=== PATIENT | female | born 1930 | race African-American/Black ===

== ENCOUNTER 2018-08-18 06:45 | Inpatient (IN) | payer MEDICARE, BC ==
[~2018-08-18] VITALS: Ht 160 cm; Wt 73.0 kg
[2018-08-18] MEDS ORDERED: ACETAMINOPHEN 325MG TABLET PO STA (07:03)
[2018-08-18] MEDS ORDERED: SODIUM CHLORIDE 0.9% 1000ML BAG (SEPSIS BOLUS) IV ONE (07:15)
[2018-08-18] MEDS ORDERED: PIPERACILLIN/TAZ 3.375G PREMIX 50 ML IV ONE (07:15)
[2018-08-18] MEDS ORDERED: VANCOMYCIN 1 G PREMIX 200 ML IV ONE (07:15)
[2018-08-18 07:29] LABS: BASOPHILS % 0.3 % (0.0-2.0); HEMATOCRIT. 40.4 % (36.0-48.0); HEMOGLOBIN. 13.3 g/dL (12.0-16.0); LYMPHOCYTES % 21.3 % (20.0-50.0); MEAN CORPUSCULAR HEMOGLOBIN 27.5 pg (28.0-32.0); MEAN CORPUSCULAR VOLUME 83.5 fL (81.0-99.0); MEAN PLATELET VOLUME 7.8 fl (7.4-10.4); MONOCYTES % 8.3 % (2.0-8.0); NEUTROPHILS % 70.1 % (40.0-76.0); PLATELET 225 x1000/uL (130-400); RED BLOOD CELL COUNT 4.84 mill/uL (4.2-5.4); RED CELL DISTRIBUTION WIDTH 14.9 % (11.6-14.6)
[2018-08-18 07:34] LABS: CHLORIDE 100 mEq/L (98-107)
[2018-08-18] MEDS ORDERED: OSELTAMIVIR 75MG CAPSULE PO ONE (10:30)
[2018-08-18 14:50] VITALS: BP 131/64
[2018-08-18 16:00] VITALS: BP_SYST 130; BP_SYST 131; BP_DIAS 64; BP_DIAS 67
[2018-08-18] MEDS ORDERED: GUAIFENESIN-DM 200MG-20MG/10ML UDC PO PRN (16:45)
[2018-08-18] MEDS ORDERED: NON FORMULARY PATIENT HOME MED XX SCH (16:45)
[2018-08-18] MEDS ORDERED: MULT-1146 PO (16:48)
[2018-08-18] MEDS ORDERED: CAND32TA8 PO (16:48)
[2018-08-18] MEDS ORDERED: AMLO10TA80 PO (16:48)
[2018-08-18] MEDS ORDERED: ATOR20TA65 PO (16:48)
[2018-08-18] MEDS ORDERED: TEMAZEPAM 15MG CAPSULE PO PRN (19:00)
[2018-08-18] MEDS ORDERED: KCL 20MEQ/100ML PREMIX 100 ML IV SCH (19:00)
[2018-08-18] MEDS: LOSARTAN POTASSIUM 100 MG TABLET PO SCH (19:55)
[2018-08-18 20:00] VITALS: BP 153/70
[2018-08-18 21:42] LABS: BASOPHILS % 0.7 % (0.0-2.0); EOSINOPHILS % 0.1 % (0.0-5.0); HEMATOCRIT. 35.4 % (36.0-48.0); HEMOGLOBIN. 11.9 g/dL (12.0-16.0); LYMPHOCYTES % 38.1 % (20.0-50.0); MEAN CORPUSCULAR VOLUME 83.2 fL (81.0-99.0); MEAN PLATELET VOLUME 7.9 fl (7.4-10.4); MONOCYTES % 10.9 % (2.0-8.0); NEUTROPHILS % 50.2 % (40.0-76.0); PLATELET 193 x1000/uL (130-400); RED BLOOD CELL COUNT 4.25 mill/uL (4.2-5.4); RED CELL DISTRIBUTION WIDTH 14.8 % (11.6-14.6)
[2018-08-18 21:47] LABS: CHLORIDE 104 mEq/L (98-107)
[2018-08-18] MEDS: METHYLPREDNISOLONE SOD SUCC 40 MG/ML VIAL IV SCH (22:15)
[2018-08-18] MEDS: FAMOTIDINE 20MG TABLET PO SCH (22:16)
[2018-08-18] MEDS: AZITHROMYCIN 500 MG in DEXT 5% WATER 250 ML IV SCH (22:16)
[2018-08-18] MEDS: ATORVASTATIN CALCIUM 20MG TABLET PO SCH (22:17)
[2018-08-18] MEDS: OSELTAMIVIR 75MG CAPSULE PO SCH (22:17)
[2018-08-18] MEDS: OXYMETAZOLINE HCL NASAL SPRAY 15ML BOTHNSTRLS SCH (22:29)
[2018-08-18] MEDS: FLUTICASONE PROPIONATE 50MCG/SPRAY BOTTLE BOTHNSTRLS SCH (22:30)
[2018-08-18] MEDS: IPRATROPIUM/ALBUTEROL 0.5-3(2.5)MG/3ML NEB HHN SCH (22:37)
[2018-08-18] MEDS: BUDESONIDE 0.5MG/2ML NEB HHN SCH (22:37)
[2018-08-19] VITALS: BP 134/65
[2018-08-19] MEDS ORDERED: POTASSIUM CHLORIDE 20MEQ TABLET SR PO SCH ×2 (00:15→00:49)
[2018-08-19] MEDS ORDERED: ACETAMINOPHEN 325MG TABLET PO PRN (00:15)
[2018-08-19] MEDS: IPRATROPIUM/ALBUTEROL 0.5-3(2.5)MG/3ML NEB HHN SCH ×6 (01:11→21:35)
[2018-08-19 04:00] VITALS: BP 106/49
[2018-08-19] MEDS: METHYLPREDNISOLONE SOD SUCC 40 MG/ML VIAL IV SCH ×3 (04:50→20:24)
[2018-08-19 08:00] VITALS: BP 103/46
[2018-08-19] MEDS: BUDESONIDE 0.5MG/2ML NEB HHN SCH ×2 (08:50→21:35)
[2018-08-19] MEDS ORDERED: OSELTAMIVIR 75MG CAPSULE PO SCH (09:00)
[2018-08-19] MEDS: AMLODIPINE 10MG TABLET PO SCH (09:00)
[2018-08-19] MEDS: LOSARTAN POTASSIUM 100 MG TABLET PO SCH (09:00)
[2018-08-19] MEDS: FLUTICASONE PROPIONATE 50MCG/SPRAY BOTTLE BOTHNSTRLS SCH ×2 (09:21→20:25)
[2018-08-19] MEDS: OXYMETAZOLINE HCL NASAL SPRAY 15ML BOTHNSTRLS SCH ×2 (09:21→20:26)
[2018-08-19] MEDS: OSELTAMIVIR 75MG CAPSULE PO SCH ×2 (09:23→20:25)
[2018-08-19 12:00] VITALS: BP 100/40
[2018-08-19] MEDS ORDERED: POTASSIUM CHLORIDE 20MEQ TABLET SR PO NR (12:15)
[2018-08-19 16:00] VITALS: BP 112/67
[2018-08-19 20:00] VITALS: BP 121/62
[2018-08-19] MEDS: FAMOTIDINE 20MG TABLET PO SCH (20:24)
[2018-08-19] MEDS: AZITHROMYCIN 500 MG in DEXT 5% WATER 250 ML IV SCH (20:24)
[2018-08-19] MEDS: ATORVASTATIN CALCIUM 20MG TABLET PO SCH (20:25)
[2018-08-20] VITALS: BP 130/70
[2018-08-20] MEDS: IPRATROPIUM/ALBUTEROL 0.5-3(2.5)MG/3ML NEB HHN SCH ×5 (02:09→16:42)
[2018-08-20 04:00] VITALS: BP 117/54
[2018-08-20 08:00] VITALS: BP 110/53
[2018-08-20] MEDS: FLUTICASONE PROPIONATE 50MCG/SPRAY BOTTLE BOTHNSTRLS SCH (08:45)
[2018-08-20] MEDS: OXYMETAZOLINE HCL NASAL SPRAY 15ML BOTHNSTRLS SCH (08:45)
[2018-08-20] MEDS: OSELTAMIVIR 75MG CAPSULE PO SCH (08:46)
[2018-08-20] MEDS: AMLODIPINE 10MG TABLET PO SCH (08:46)
[2018-08-20] MEDS: LOSARTAN POTASSIUM 100 MG TABLET PO SCH (09:34)
[2018-08-20] MEDS: BUDESONIDE 0.5MG/2ML NEB HHN SCH (09:54)
[2018-08-20 11:01] VITALS: BP 119/65
[2018-08-20 12:00] VITALS: BP 120/67
[2018-08-20 16:00] VITALS: BP 111/42
== END 2018-08-20 19:11 | disposition home or self-care (01) | DRG 193 ==
LOC: ER 06:45 → 7WST 11:16 → EDBEDREQ 11:20 → EDBEDREQSVC 11:20 → ENRESERV 12:00
PROVIDERS: ADMIT Specialist; ATTEND Specialist
DX: J10.1 Influenza due to other identified influenza virus with other respiratory manifestations (principal); J96.00 Acute respiratory failure, unspecified whether with hypoxia or hypercapnia; M33.20 Polymyositis, organ involvement unspecified; J45.21 Mild intermittent asthma with (acute) exacerbation; E78.5 Hyperlipidemia, unspecified; E87.6 Hypokalemia; G89.29 Other chronic pain; I10 Essential (primary) hypertension; J44.9 Chronic obstructive pulmonary disease, unspecified; Z96.649 Presence of unspecified artificial hip joint; R73.9 Hyperglycemia, unspecified; D64.9 Anemia, unspecified; K21.9 Gastro-esophageal reflux disease without esophagitis; M19.90 Unspecified osteoarthritis, unspecified site; M48.061 Spinal stenosis, lumbar region without neurogenic claudication; Z90.710 Acquired absence of both cervix and uterus; Z88.6 Allergy status to analgesic agent; Z88.5 Allergy status to narcotic agent; Z79.899 Other long term (current) drug therapy
CPT/HCPCS: 36415; 71045; 80048; 83036; 83605; 84132; 87804; 93005; 93306; 94640; 96365; 96368; 97161; 99291; C1893; J0456; J2543; J2920; J3370; J3480; J7030; J7050; J7060; J7620; J7626

== ENCOUNTER 2018-11-17 19:26 | Emergency (ER) | payer MEDICARE, BC ==
[~2018-11-17] VITALS: Ht 160 cm; Wt 72.0 kg
[~2018-11-17 19:26] MED LIST: AMLO10TA80 PO; ATOR20TA65 PO; CAND32TA8 PO; MULT-1146 PO
[2018-11-17 20:46] LABS: BASOPHILS % 0.9 % (0.0-2.0); EOSINOPHILS % 3.4 % (0.0-5.0); HEMATOCRIT. 36.5 % (36.0-48.0); HEMOGLOBIN. 12.1 g/dL (12.0-16.0); LYMPHOCYTES % 56.5 % (20.0-50.0); MEAN CORPUSCULAR HEMOGLOBIN 28.2 pg (28.0-32.0); MEAN CORPUSCULAR VOLUME 84.7 fL (81.0-99.0); MEAN PLATELET VOLUME 7.3 fl (7.4-10.4); MONOCYTES % 8.3 % (2.0-8.0); NEUTROPHILS % 30.9 % (40.0-76.0); PLATELET 283 x1000/uL (130-400); RED BLOOD CELL COUNT 4.31 mill/uL (4.2-5.4); RED CELL DISTRIBUTION WIDTH 15.6 % (11.6-14.6)
[2018-11-17 20:49] LABS: CHLORIDE 108 mEq/L (98-107)
[2018-11-17 21:41] LABS: CLARITY URINE CLOUDY (CLEAR); COLOR URINE YELLOW (YELLOW); KETONES URINE NEGATIVE (NEGATIVE); LEUKOCYTE ESTERASE URINE 2+ (NEGATIVE); NITRITE URINE NEGATIVE (NEGATIVE); OCCULT BLOOD URINE NEGATIVE (NEGATIVE); PROTEIN URINE NEGATIVE (NEGATIVE); UROBILINOGEN URINE 0.2 E.U./dL (0.2-1.0)
[2018-11-18 01:55] VITALS: BP 119/69
== END 2018-11-17 23:15 | disposition home or self-care (01) ==
LOC: ER 19:26
DX: R55 Syncope and collapse (principal); N39.0 Urinary tract infection, site not specified; I11.9 Hypertensive heart disease without heart failure; E78.00 Pure hypercholesterolemia, unspecified; J45.909 Unspecified asthma, uncomplicated; Z88.5 Allergy status to narcotic agent; Z88.6 Allergy status to analgesic agent; Z96.649 Presence of unspecified artificial hip joint; Z90.710 Acquired absence of both cervix and uterus
CPT/HCPCS: 36415; 71045; 83880; 84484; 93005; 99284

== ENCOUNTER 2018-12-11 15:46 | Emergency (ER) | payer MEDICARE, BC ==
[~2018-12-11] VITALS: Ht 167.6 cm; Wt 72.0 kg
[2018-12-11] MEDS ORDERED: SODIUM CHLORIDE 0.9% 1,000 ML IV ONE (18:48)
[2018-12-11] MEDS ORDERED: ONDANSETRON HCL 4MG/2ML INJ IV STA (18:48)
[2018-12-11] MEDS ORDERED: KETOROLAC 15MG/ML VIAL IV ONE (19:00)
[2018-12-11 19:10] LABS: BASOPHILS % 0.8 % (0.0-2.0); EOSINOPHILS % 3.6 % (0.0-5.0); HEMATOCRIT. 35.4 % (36.0-48.0); HEMOGLOBIN. 11.8 g/dL (12.0-16.0); LYMPHOCYTES % 58.5 % (20.0-50.0); MEAN CORPUSCULAR HEMOGLOBIN 28.5 pg (28.0-32.0); MEAN CORPUSCULAR VOLUME 85.9 fL (81.0-99.0); MEAN PLATELET VOLUME 7.6 fl (7.4-10.4); NEUTROPHILS % 30.1 % (40.0-76.0); PLATELET 229 x1000/uL (130-400); RED BLOOD CELL COUNT 4.12 mill/uL (4.2-5.4)
[2018-12-11 19:20] LABS: PARTIAL THROMBOPLASTIN TIME 25.2 sec (23.4-31.0); PROTHROMBIN TIME 10.7 sec (9.6-11.0)
[2018-12-11 19:22] LABS: CLARITY URINE CLEAR (CLEAR); COLOR URINE YELLOW (YELLOW); KETONES URINE TRACE (NEGATIVE); LEUKOCYTE ESTERASE URINE TRACE (NEGATIVE); NITRITE URINE NEGATIVE (NEGATIVE); OCCULT BLOOD URINE NEGATIVE (NEGATIVE); PROTEIN URINE NEGATIVE (NEGATIVE); SPECIFIC GRAVITY URINE 1.023 (1.005-1.030); UROBILINOGEN URINE 0.2 E.U./dL (0.2-1.0)
[2018-12-11 19:24] LABS: CHLORIDE 110 mEq/L (98-107)
[2018-12-11 20:00] VITALS: BP 112/54
[2018-12-11] MEDS ORDERED: CEFTRIAXONE 1 G PREMIX 50 ML IV ONE (20:00)
== END 2018-12-11 21:15 | disposition home or self-care (01) ==
LOC: ER 15:46
DX: R10.32 Left lower quadrant pain (principal); R11.2 Nausea with vomiting, unspecified; J45.909 Unspecified asthma, uncomplicated; I11.9 Hypertensive heart disease without heart failure; E78.00 Pure hypercholesterolemia, unspecified; Z90.710 Acquired absence of both cervix and uterus; Z88.6 Allergy status to analgesic agent; Z88.5 Allergy status to narcotic agent; Z79.899 Other long term (current) drug therapy; Z98.890 Other specified postprocedural states; Z96.659 Presence of unspecified artificial knee joint
CPT/HCPCS: 36415; 71045; 74176; 80053; 81003; 82270; 83690; 85025; 85610; 85730; 87086; 93005; 96361; 96365; 96375; 99284; J0696; J1885; J2405; J7030